=== PATIENT | male | born 1985 ===

== ENCOUNTER 2025-01-22 06:51 | Observation (INO) | payer OTHER ==
[~2025-01-22] VITALS: Ht 172.7 cm; Wt 109.4 kg
[~2025-01-22 06:51] MED LIST: HYDR1TAB94 PO
[2025-01-22 07:20] LABS: BASOPHILS ABSOLUTE AUTO 0.05 K/mm3 (0.00-0.23); BASOPHILS PERCENT AUTO 1 % (0-2); EOSINOPHILS ABSOLUTE AUTO 0.33 K/mm3 (0.00-0.68); EOSINOPHILS PERCENT AUTO 4 % (0-6); Hematocrit 43.4 % (37.0-53.0); Hemoglobin 14.8 g/dL (13.5-17.5); IMMATURE GRAN ABSOLUTE AUTO 0.06 K/mm3 (0.00-0.10); IMMATURE GRAN PERCENT AUTO 1 % (0-1); LYMPHOCYTES ABSOLUTE AUTO 1.93 K/mm3 (0.84-5.20); LYMPHOCYTES PERCENT AUTO 23 % (21-46); MONOCYTES ABSOLUTE AUTO 1.16 K/mm3 (0.16-1.47); MONOCYTES PERCENT AUTO 14 % (4-13); Mean Corpuscular HGB Conc 34.1 g/dL (31.5-36.5); Mean Corpuscular Volume 90 fL (80-100); NEUTROPHILS ABSOLUTE AUTO 5.06 K/mm3 (1.96-9.15); NEUTROPHILS PERCENT AUTO 59 % (41-73); NRBC ABSOLUTE 0.00 K/mm3 (0.00-0.02); NRBC Auto 0.0 /100 WBC (0.0-0.2); Platelet Count 239 K/mm3 (150-400); RDW Coefficient Variation 12.4 % (11.7-14.2); RDW Standard Deviation 41.7 fL (35.1-46.3)
[2025-01-22 07:45] LABS: Alanine Aminotransfer (ALT/SGP 96.0 U/L (12-78); Albumin, Blood 3.4 g/dL (3.4-5.0); Albumin/Globulin Ratio 0.9 (0.8-1.8); Anion Gap 7.0 mmol/L (3-11); Aspartate Aminotrans (AST/SGOT 44.0 U/L (12-37); Bilirubin, Total 0.4 mg/dL (0.1-1.0); Blood Urea Nitrogen 14.0 mg/dL (8-24); CO2, Blood 26.0 mmol/L (21-32); Calcium, Blood 8.4 mg/dL (8.5-10.1); Chloride, Blood 109.0 mmol/L (98-108); Creatinine, Blood 0.8 mg/dL (0.60-1.20); Globulin, Blood 3.7 g/dL (2.2-4.0); Glucose, Blood 84.0 mg/dL (70-99); Potassium, Blood 3.9 mmol/L (3.5-5.5); Sodium, Blood 138.0 mmol/L (136-145); Total Protein, Blood 7.1 g/dL (6.4-8.2)
[2025-01-22] MEDS ORDERED: Enoxaparin 40 MG/0.4 ML SYR SC SCH (10:00)
[2025-01-22 10:24] LABS: CHOL/HDL RATIO 2.9; Cholesterol 141 mg/dL (50-200); HDL Cholesterol 48 mg/dL (>39); LDL/HDL RATIO 1.3; Low Density Lipoprotein Chol 62 mg/dL (0-110); Magnesium, Blood 2.1 mg/dL (1.6-2.4); Thyroid Stimulating Hormone 1.740 uIU/mL (0.360-4.800); Triglycerides 155 mg/dL (30-140); Very Low Density Lipoprot Chol 31 mg/dL (6-28)
[2025-01-22 11:04] VITALS: BP 114/81
[2025-01-22] MEDS ORDERED: Furosemide 10 MG / ML 2ML Vial IV SCH (11:30)
[2025-01-22] MEDS ORDERED: Miconazole Nitrate 2% 85 GM PWD TOP SCH ×2 (13:55→21:00)
[2025-01-22 16:26] VITALS: BP 127/82
--- NOTE | 2025-01-22 17:40 | NUR ---
PT ARRIVED IN THE ROOM FROM [facility] AT APPROX 10;45A. SIGINIFICANT OTHER AT THE BEDSIDE UPON ARRIVAL. PT ABLE TO AMBULATE TO THE BED WITH NO ISSUES. ALERT AND ORIENTED X4. ANSWERS QUESTIONS APPROPRIATELY. PT IS HERE FOR CHEST PAIN, PT HAS 4/10 CHEST PAIN ARRIVAL PT REFUSED PAIN MEDS AND REPORTED PAIN IS TOLERABLE AT THE TIME, NO CHEST PAINS REPORTED T/O SHIFT. VITALS HRR SR 70'S, SBP 115, SATS ABOVE 95% ON RA, AFEBRILE. FIRST PORTION OF STRESS TEST DONE TODAY, SECOND PORTION TO BE DONE IN AM. PT WAS GIVEN IV LASIX. INDEPENDENT IN THE ROOM. PT HAS SOME REDNESS ON BOTH GROIN MICONAZOLE POWDER ORDERED, PT ABLE TO SHOWER, PT RESTED AFTER SHOWER. TROPONIN TRENDS NEGATIVE OF THIS TIME. PT HAS BEEN CALLING APPROPRIATELY. WILL REPORT TO ONCOMING SHIFT
[2025-01-22 19:53] VITALS: BP 142/82
--- NOTE | 2025-01-22 20:08 | NUR ---
nurse note PT IS A+O X4 ABLE TO MAKE NEEDS KNOWN, GIRLFRIEND AT BEDSIDE. MEDICAL REIMBURSEMENT SPECIALIST CALLED TO ALERT THIS RN OF 9 BEAT RUN OF AFIB RVR. PATIENT WAS ASLEEP DURING THIS. THIS RN AWOKE HIM AND HE DENIED CHEST PAIN. PT HAS HAD AN ADDITIONAL RUN IF RVR AFTER THIS. DR. EASTMAN ALERTED TO "RUNS" OF RVR, NO NEW ORDERS AT THIS TIME. CALL LIGHT IN REACH.
--- NOTE | 2025-01-22 23:31 | NUR ---
NURSE NOTE PT ORDERED PIZZA TO ROOM, THIS RN EDUCATED PATIENT THAT THIS WAS NOT WITHIN HIS 2GRAM SODIUM DIET GUIDLINES. PT REPONDED, "HE WAS TOLD HE COULD EAT AND DRINK WHATEVER HE WANTED UNTIL MIDNIGHT." PT ALSO BECOME UPSET ABOUT THE FACT HE WOULD NEED TO BE NPO AT MIDNIGHT FOR STRESS TEST IN THE AM. AT AROUND 2300 PATIENT LEFT AMA OUT THE SIDE DOOR AND WENT TO THE [facility]. UPON ENTERING HIS ROOM IT WAS NOTED HE LEFT TELE BOX ON CHAIR, REMOVED HIS IV HIMSELF AND COLLECTED HIS PERSONAL BELONGINGS.
[2025-01-23] MEDS ORDERED: Enoxaparin 40 MG/0.4 ML SYR SC SCH (09:00)
== END 2025-01-22 23:00 | disposition left against medical advice (07) ==
LOC: ER 06:51 → PCU 06:52
PROVIDERS: Emergency Medicine; ADMIT Family Medicine
DX: I25.110 Atherosclerotic heart disease of native coronary artery with unstable angina pectoris (principal); I25.2 Old myocardial infarction; R60.9 Edema, unspecified; F17.210 Nicotine dependence, cigarettes, uncomplicated; E66.812 Obesity, class 2; Z68.36 Body mass index [BMI] 36.0-36.9, adult; Z88.0 Allergy status to penicillin; Z95.5 Presence of coronary angioplasty implant and graft; Z90.49 Acquired absence of other specified parts of digestive tract
CPT/HCPCS: 36415; 71045; 78451; 80053; 80061; 83036; 83735; 83880; 84439; 84443; 84481; 84484; 85025; 93005; 93010; 93306; 96372; 96374; 99285-25; A9270; A9500; G0378; J1650; J1938